=== PATIENT | male | born 1985 | race Caucasian/White ===

== ENCOUNTER 2019-08-17 12:33 | Emergency (ER) | payer OTHER ==
[2019-08-17] MEDS: KETOROLAC 60 MG INJ IM (15:24)
[2019-08-17] MEDS: METHOCARBAMOL 750 MG TAB PO (15:24)
== END 2019-08-17 15:33 | disposition home or self-care (01) ==
LOC: FTE 12:33
DX: M54.5 Low back pain (principal); G89.29 Other chronic pain
CPT/HCPCS: 96372; 99284-25